=== PATIENT | male | born 1980 | race Hispanic/Latino ===

== ENCOUNTER → 2023-04-27 10:44 | Outpatient (REF) | payer OTHER, SELFPAY ==
[2023-04-27 12:05] LABS: ALT (SGPT) 34 U/L (0-50); AST (SGOT) 30 U/L (17-59); Albumin 4.2 g/dl (3.5-5.0); Alkaline Phosphatase 106 U/L (38-126); Direct Bilirubin 0.4 mg/dl (0.0-0.4); Total Bilirubin 0.7 mg/dl (0.2-1.3); Total Protein 7.4 g/dl (6.3-8.2)
== END ==
LOC: CLINIC 10:44
PROVIDERS: ATTENDING PHYSICIAN Nurse Practitioner Adult Health
DX: B35.1 Tinea unguium (principal)
CPT/HCPCS: 36415; 80076

== ENCOUNTER → 2023-09-10 11:28 | Outpatient (REF) | payer OTHER, SELFPAY ==
[2023-09-10 12:51] LABS: ALT (SGPT) 24 U/L (0-50); AST (SGOT) 27 U/L (17-59); Albumin 4.5 g/dl (3.5-5.0); Alkaline Phosphatase 102 U/L (38-126); Direct Bilirubin 0.2 mg/dl (0.0-0.4); Total Bilirubin 0.7 mg/dl (0.2-1.3)
== END ==
LOC: REG 11:28
PROVIDERS: ATTENDING PHYSICIAN Nurse Practitioner Adult Health
DX: B35.1 Tinea unguium (principal)
CPT/HCPCS: 36415; 80076

== ENCOUNTER → 2024-04-18 12:48 | Outpatient (REF) | payer OTHER, SELFPAY ==
[2024-04-18 14:49] LABS: ALT (SGPT) 44 U/L (0-50); AST (SGOT) 32 U/L (17-59); Albumin 4.5 g/dl (3.5-5.0); Alkaline Phosphatase 101 U/L (38-126); Blood Urea Nitrogen 11 mg/dl (9-20); Carbon Dioxide 31 mmol/L (22-30); Chloride 101 mmol/L (98-107); Glucose 98 mg/dl (70-99); Sodium 140 mmol/L (135-145); Total Bilirubin 0.5 mg/dl (0.2-1.3); Total Protein 7.6 g/dl (6.3-8.2); eGFR > 60.00
== END ==
LOC: CLINIC 12:48
PROVIDERS: ATTENDING PHYSICIAN Nurse Practitioner Adult Health
DX: E55.9 Vitamin D deficiency, unspecified (principal)
CPT/HCPCS: 36415; 80053; 82306